=== PATIENT | female | born 1960 | race Caucasian/White ===

== ENCOUNTER 2019-09-26 08:02 | Day surgery (SDC) | payer BC ==
[2019-09-23 14:59] VITALS: BMI 32.3
[2019-09-26 10:53] VITALS: TEMP 97.9
[2019-09-26 10:56] VITALS: BP 121/69; PULSE 64
== END 2019-09-26 10:55 | disposition home or self-care (01) ==
LOC: FASU-ENDO 08:02
PROVIDERS: ATTEND Internal Medicine Gastroenterology
PROC: 0DJD8ZZ Inspection of Lower Intestinal Tract, Via Natural or Artificial Opening Endoscopic (ICD-10-PCS; principal; 2019-09-26 09:56)
DX: Z86.010 Personal history of colon polyps (principal); K57.30 Diverticulosis of large intestine without perforation or abscess without bleeding